=== PATIENT | male | born 2000 | race Caucasian/White ===

== ENCOUNTER 2021-08-16 08:43 | Emergency (ER) | payer OTHER ==
[~2021-08-16] VITALS: Ht 152.4 cm; Wt 68.0 kg
== END 2021-08-16 10:51 | disposition home or self-care (01) ==
LOC: ER 08:43
DX: S23.3XXA Sprain of ligaments of thoracic spine, initial encounter (principal); X50.9XXA Other and unspecified overexertion or strenuous movements or postures, initial encounter; Y93.89 Activity, other specified; Y92.89 Other specified places as the place of occurrence of the external cause; Y99.8 Other external cause status